=== PATIENT | male | born 1950 | race Caucasian/White ===

== ENCOUNTER 2017-02-10 09:57 | Emergency (ER) | payer MEDICARE ==
[~2017-02-10] VITALS: Ht 160 cm; Wt 70.8 kg
[2017-02-10] MEDS ORDERED: MAGNESIUM400 M1 PO (10:13)
[2017-02-10] MEDS ORDERED: ASPIR-LOW81 MG PO (10:13)
[2017-02-10] MEDS ORDERED: METOPROLOL SUC100 MG PO (10:14)
[2017-02-10] MEDS ORDERED: FOLGARD TABLET1 EAC1 PO (10:14)
[2017-02-10] MEDS ORDERED: PROGRAF1 MG PO (10:15)
[2017-02-10] MEDS ORDERED: CELLCEPT250 MG PO (10:15)
[2017-02-10] MEDS ORDERED: TUMS ULTRA ST1177 MG PO (10:15)
[2017-02-10] MEDS ORDERED: LIPITOR80 MG GT (12:08)
--- NOTE | 2017-02-10 21:04 | EKG ---
[facility] [address] [facility] [place] [address] Signed Normal sinus rhythm Normal ECG No previous ECGs available Confirmed by MORENO HECTOR MD ([id number] on 02/10/2017 9:04:04 PM Electronically Signed By: MORENO HECTOR MD 02/10/17 2104 PATIENT NAME: ENOCH GARRIDO Electrocardiogram DATE OF : 54 PHYSICIAN: MORENO HECTOR MD REPORT #: [id number] REPORT IS CONFIDENTIAL AND NOT TO BE RELEASED WITHOUT AUTHORIZATION
== END 2017-02-10 12:40 | disposition home or self-care (01) ==
LOC: ED 09:57
DX: I63.9 Cerebral infarction, unspecified (principal); I10 Essential (primary) hypertension; E05.90 Thyrotoxicosis, unspecified without thyrotoxic crisis or storm; Z94.0 Kidney transplant status; Z88.0 Allergy status to penicillin; Z79.82 Long term (current) use of aspirin; Z79.899 Other long term (current) drug therapy
CPT/HCPCS: 70450; 71010; 80053; 84484; 85025; 85610; 85730; 99284